=== PATIENT | female | born 1975 | race Caucasian/White ===

== ENCOUNTER 2017-09-24 12:34 | Emergency (ER) | payer BC, MEDICAID, OTHER, SELFPAY ==
[2017-09-24] MEDS ORDERED: HYDROmorphone 1 MG/ML Syringe IVPUSH ONE ×2 (13:28→16:30)
[2017-09-24] MEDS ORDERED: Sodium Chloride 0.9% 1,000 ML IV ONE (13:28)
[2017-09-24] MEDS ORDERED: Sodium Chloride 0.9% 10 ML Syringe FLUSH PRN (13:28)
[2017-09-24 13:29] VITALS: BP 148/97
--- NOTE | 2017-09-24 13:29 | EDM.PDOC ---
ED HPI GENERAL MEDICAL PROBLEM - General Chief Complaint: Abdominal Pain Stated Complaint: LOWER BACK AND ABD PAIN Time Seen by Provider: 09/24/17 13:00 Source of Information: Reports: Patient, Old Records (May, 2016 ER visits for abdominal pain) History Limitations: Reports: No Limitations - History of Present Illness INITIAL COMMENTS - FREE TEXT/NARRATIVE: 42-year-old female presents for evaluation and treatment of abdominal pain. Patient reports abdominal pain started yesterday around 0400. She states that it woke her from sleep. She said she took some Aleve and a hot shower. She was able to fall back asleep woke up at 0830 again due to the pain. She reports associated symptoms of nausea. She is also complaining of back pain. Patient presented to the [facility] today. Labs and a CT of abdomen and pelvis were done. No abnormalities were identified. She was given Tylenol. She is also taking Aleve twice earlier today. She denies any fevers or vomiting. Reports the abdominal pain is located in the bilateral lower abdomen. Last bowel movement was this morning. No constipation. Past surgical history includes a cholecystectomy and a tubal ligation. Patient is in [facility]. Last menstrual cycle was one year ago. Duration: Day(s): (2) Location: Reports: Abdomen (RLQ) Other Treatments DIVISION CHIEF: alleve at 0730 - Related Data Allergies Allergy/AdvReac Type Severity Reaction Status Date / Time tramadol Allergy Headache Verified 09/24/17 12:50 Home Meds: Home Meds atorvaSTATin [Lipitor] 40 mg PO DAILY 06/02/16 [History] Albuterol Sulfate [Proventil Hfa] 2 puff PO ASDIRECTED 08/04/16 [History] Hydrocodone/Acetaminophen [Hydrocodon-Acetaminophen 5-325] 1 each PO Q4H #10 tablet 08/04/16 [Rx] Acetaminophen/oxyCODONE [Percocet 325-5 MG] 1 tab PO Q6H PRN #20 tablet [Rx] Calcium Carb & Citrate/Vit D3 [Calcium + D3 ER Tablet] 1 tab PO DAILY 09/24/17 [ History] Genistein [I-Cool] 30 mg PO DAILY 09/24/17 [History] Omeprazole Magnesium [Prilosec Otc] 0 mg PO DAILY 09/24/17 [History] Ondansetron [Zofran ODT] 4 mg PO Q6H PRN #20 tab.dis 09/24/17 [Rx] Past Medical History Cardiovascular History: Reports: High Cholesterol Other Cardiovascular History: hyperlipidemia Respiratory History: Reports: Asthma Musculoskeletal History: Reports: Back Pain, Chronic - Past Surgical History GI Surgical History: Reports: Cholecystectomy Female Surgical History: Reports: Tubal Ligation Social & Family History - Family History Endocrine/Metabolic: Reports: Diabetes, type II, Hyperthyroidism Oncologic: Reports: Colon, Other (See Below) Other Oncologic Family History: ocular - Tobacco Use Smoking Status *Q: Current Every Day Smoker Years of Tobacco use: 27 Packs/Tins Daily: 0.5 Used Tobacco, but Quit: No Second Hand Smoke Exposure: Yes - Caffeine Use Caffeine Use: Reports: Coffee, Soda Other Caffeine Use: 2-3 CUPS DAILY - Alcohol Use Days Per Week of Alcohol Use: 2 Number of Drinks Per Day: 3 Total Drinks Per Week: 6 - Recreational Drug Use Recreational Drug Use: No - Living Situation & Occupation Living situation: Reports: Occupation: Employed ED ROS GENERAL - Review of Systems Review Of Systems: See Below Constitutional: Denies: Fever GI/Abdominal: Reports: Abdominal Pain (bilateral lower abdomen), Nausea. Denies : Bloody Stool, Constipation, Diarrhea, Vomiting : Reports: No Symptoms. Denies: Discharge ED EXAM, GI/ABD - Physical Exam Exam: See Below Exam Limited By: No Limitations General Appearance: Alert, WD/WN, No Apparent Distress, Moderate Distress, Obese Respiratory/Chest: No Respiratory Distress, Lungs Clear, Normal Breath Sounds Cardiovascular: Normal Peripheral Pulses, Regular Rate, Rhythm, No Murmur GI/Abdominal Exam: Normal Bowel Sounds, Soft, Tender (bilateral lower abdomen). No: Rebound (Female) Exam: Normal External Exam, Normal Speculum Exam, Normal Bimanual Exam Neurological: Alert, Oriented, Normal Cognition Psychiatric: Normal Affect, Normal Mood Course - Vital Signs Last Recorded V/S: Last Vital Signs Temp 36.4 C 09/24/17 12:46 Pulse 94 09/24/17 12:46 Resp 20 09/24/17 12:46 BP 148/97 H 09/24/17 12:46 Pulse Ox 98 09/24/17 12:46 - Orders/Labs/Meds Labs: Laboratory Tests 09/24/17 09/24/17 Range/Units 13:35 13:35 C-Reactive Protein < 0.2 (<1.0) mg/dL Lipase 72 L (73-393) U/L HCG, Qual Negative (NEGATIVE) Meds: Medications Discontinued Medications Generic Name Dose Route Start Last Admin Trade Name Freq PRN Reason Stop Dose Admin Diphenhydramine HCl 25 mg 09/24/17 19:20 09/24/17 19:26 Benadryl IVPUSH 09/24/17 19:21 25 mg ONETIME ONE Administration Hydromorphone HCl 1 mg 09/24/17 13:28 09/24/17 13:41 Dilaudid IVPUSH 09/24/17 13:29 1 mg ONETIME ONE Administration Hydromorphone HCl 1 mg 09/24/17 16:30 09/24/17 17:19 Dilaudid IVPUSH 09/24/17 16:31 1 mg ONETIME ONE Administration Hydromorphone HCl 0.5 mg 09/24/17 19:15 09/24/17 19:27 Dilaudid IVPUSH 09/24/17 19:16 0.5 mg ONETIME ONE Administration Sodium Chloride 1,000 mls @ 999 mls/hr 09/24/17 13:28 09/24/17 13:41 Normal Saline IV 09/24/17 14:28 999 mls/hr ONETIME ONE Administration Metoclopramide HCl 5 mg 09/24/17 19:15 09/24/17 19:26 Reglan IVPUSH 09/24/17 19:16 5 mg ONETIME ONE Administration Ondansetron HCl 4 mg 09/24/17 13:39 09/24/17 13:45 Zofran IVPUSH 09/24/17 13:40 4 mg ONETIME ONE Administration Ondansetron HCl Confirm 09/24/17 18:01 09/24/17 19:30 Zofran Administered 09/24/17 18:02 Not Given Dose 4 mg .ROUTE .STK-MED ONE Ondansetron HCl 4 mg 09/24/17 18:40 09/24/17 17:58 Zofran IVPUSH 09/24/17 18:41 4 mg ONETIME ONE Administration Sodium Chloride 10 ml 09/24/17 13:28 09/24/17 13:45 Saline Flush FLUSH 10 ml ASDIRECTED PRN Administration Keep Vein Open - Radiology Interpretation Free Text/Narrative:: Pelvic ultrasound: Multiple real-time images were obtained transvaginally. Comparison: Previous pelvic ultrasound exam of 06/07/16. Small anterior fibroid seen within the uterine fundus measuring 1.0 cm. This is seen on previous exams. No additional myometrial abnormality is seen. Endometrial thickness is 2.5 mm which is normal. Right and left ovaries are identified and appear within normal limits. No free fluid is seen. Measurements: Uterus: Length 7.7 cm, AP and 3.2 cm, transverse width 3.8 cm Right ovary: 2.4 x 1.1 x 1.5 cm Left ovary: 2.5 x 1.4 x 1.9 cm Impression: 1. Small anterior uterine fibroid. This is felt to be stable from prior exam. 2. No additional abnormality is appreciated on pelvic ultrasound exam. - Re-Assessments/Exams Free Text/Narrative Re-Assessment/Exam: 09/24/17 14:24 CT and labs obtained from [facility]. These include the following: UA : Negative glucose, negative bilirubin, negative ketones, trace blood, negative protein, negative nitrites and negative leukocytes. Specific gravity of 1.015. CBC: White blood cell count 8.2 with 52.3% neutrophils., hemoglobin 13.7, hematocrit 41.1, platelets 301. CMP: Glucose 89, creatinine 0.8, BUN 11, sodium 142, potassium 4.3, chloride 106 , anion gap 13, AST 17, ALT 28, alkaline phosphatase 41, total bilirubin 0.6 CT of the abdomen and pelvis with contrast both IV and oral was utilized. Findings: Cholecystectomy. Left hepatic cyst. Small accessory spleen. Liver, spleen, pancreas, adrenals, kidneys, bowel and bladder are otherwise normal. The appendix is visualized is normal. No lymphadenopathy. No free intra- peritoneal air or fluid. Atelectasis in both lung bases. Degenerative change in the spine. Impression is no acute abnormality. 09/24/17 16:[address] Durand. Recommend a pelvic exam and transvaginal ultrasound to further evaluate. 09/24/17 19:15 Patient reports that the IV Dilaudid has significantly helped with the pain but pain is still present. The pain is now more localized to the left lower quadrant. I reviewed the ultrasound results with the patient. Offered admission for pain control. Reports she does not have insurance. She like to go home and try pain medications and will follow-up with her primary care provider. Instructed to return if symptoms change or worsen. Discharge instructions as documented. Departure - Departure Time of Disposition: 19:15 Disposition: Home, Self-Care 01 Condition: Fair Clinical Impression: Abdominal pain of unknown etiology - Discharge Information Prescriptions: Acetaminophen/oxyCODONE [Percocet 325-5 MG] 1 tab PO Q6H PRN #20 tablet PRN Reason: Pain Ondansetron [Zofran ODT] 4 mg PO Q6H PRN #20 tab.dis PRN Reason: Nausea Instructions: Abdominal Pain, Adult, [id number] Referrals: Linda Cabrera COKE [employer]ER [Primary Care Provider] - Forms: ED Department Discharge Additional Instructions: Percocet 1-2 tabs every 4-6 hours as needed for pain. Percocet can habit forming , I recommend you take as few of these as needed to control your pain. Do not drive or operative machinery within 12 hours of taking Percocet. Zofran 1 tablet every 6 hours as needed for nausea. Clear fluids and bland diet today. may advance as tolerated. Follow-up a primary care provider early next week. Please return to the ER if your symptoms change or worsen. You were given medication in the ER that can affect driving or operating machinery. Do not drive or operate machinery within 12 hours.
[2017-09-24] MEDS ORDERED: Ondansetron 4 MG/2 ML SDV IVPUSH ONE ×2 (13:39→18:40)
[2017-09-24] MEDS ORDERED: Ondansetron 4 MG/2 ML SDV ONE (18:01)
--- NOTE | 2017-09-24 19:03 | US ---
Pelvic ultrasound: Multiple real-time images were obtained transvaginally. Comparison: Previous pelvic ultrasound exam of 06/07/16. Small anterior fibroid seen within the uterine fundus measuring 1.0 cm. This is seen on previous exams. No additional myometrial abnormality is seen. Endometrial thickness is 2.5 mm which is normal. Right and left ovaries are identified and appear within normal limits. No free fluid is seen. Measurements: Uterus: Length 7.7 cm, AP and 3.2 cm, transverse width 3.8 cm Right ovary: 2.4 x 1.1 x 1.5 cm Left ovary: 2.5 x 1.4 x 1.9 cm Impression: 1. Small anterior uterine fibroid. This is felt to be stable from prior exam. 2. No additional abnormality is appreciated on pelvic ultrasound exam. Diagnostic code #2
[2017-09-24] MEDS ORDERED: Metoclopramide 10 MG/2 ML SDV IVPUSH ONE (19:15)
[2017-09-24] MEDS ORDERED: HYDROmorphone 0.5 MG/0.5 ML Syringe IVPUSH ONE (19:15)
[2017-09-24] MEDS ORDERED: diphenhydrAMINE 50 MG/ML SDV IVPUSH ONE (19:20)
== END 2017-09-24 19:40 | disposition home or self-care (01) ==
LOC: JD.ED 12:34
DX: R10.32 Left lower quadrant pain (principal); R10.31 Right lower quadrant pain; J45.909 Unspecified asthma, uncomplicated; E78.5 Hyperlipidemia, unspecified; F17.210 Nicotine dependence, cigarettes, uncomplicated; Z79.899 Other long term (current) drug therapy; Z88.5 Allergy status to narcotic agent
CPT/HCPCS: 36415; 76830; 83690; 84703; 86140; 87210; 87808; 96361; 96374; 96375; 96376; 99285; J1170; J1200; J2405; J2765; J7040; J7050; 99284

== ENCOUNTER 2018-12-25 13:59 | Emergency (ER) | payer OTHER ==
[2018-12-25] MEDS ORDERED: Ketorolac 30 MG/ML SDV IM ONE (14:57)
--- NOTE | 2018-12-25 15:06 | EDM.PDOC ---
ED HPI GENERAL MEDICAL PROBLEM - General Chief Complaint: Abdominal Pain Stated Complaint: SEVERE ABDOMINAL PAIN/SORE THROAT. Time Seen by Provider: 12/25/18 14:01 Source of Information: Reports: Patient, Family History Limitations: Reports: No Limitations - History of Present Illness INITIAL COMMENTS - FREE TEXT/NARRATIVE: 43 yo post-menopausal F presents with LLQ abdominal pain x 2 months. She stated she was seen at [facility] and had testing done on 11/01/18 for her pain- CT abdomen, Vaginal U/S, Stool cultures all negative. She states the pain has only been getting worse. Heating pad, hot shower, Aleve and ibuprofen have not helped the pain. She does have h/o uterine fibroid, L hepatic cyst, diverticulosis, cholecystectomy. She was supposed to have a colonoscopy/ endoscopy this past Wednesday at [facility], but she states they refused to do the procedure as she had a fever at the time. She currently complains of BILLINGS, sore throat, decreased appetite, low grade fever (100.5 at home, but she is 98.9 here ), chills, nausea, loose stool, urinary frequency, decreased sleep 2/2 ab pain. She denies vomiting, constipation, dysuria, cough, runny nose, recent sick contacts, recent change in diet, recent travel, or illicit drug use. She drinks socially, about 3-5 drinks per sitting. Last drink was last night to "get rid of the pain, but it didn't work". 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 Ricketts, she has yet to have appointment with her yet. PCP is Dr. Marsha Murillo. Left Lower Abdomen Pain Score (Numeric/FACES): 10 - Related Data Allergies Allergy/AdvReac Type Severity Reaction Status Date / Time tramadol Allergy Headache Verified 12/25/18 14:15 Home Meds: Home Meds atorvaSTATin [Lipitor] 40 mg PO DAILY 06/02/16 [History] Albuterol Sulfate [Proventil Hfa] 2 puff PO ASDIRECTED 08/04/16 [History] Hydrocodone/Acetaminophen [Hydrocodon-Acetaminophen 5-325] 1 each PO Q4H #10 tablet 08/04/16 [Rx] Acetaminophen/oxyCODONE [Percocet 325-5 MG] 1 tab PO Q6H PRN #20 tablet [Rx] Calcium Carb & Citrate/Vit D3 [Calcium + D3 ER Tablet] 1 tab PO DAILY 09/24/17 [ History] Genistein [I-Cool] 30 mg PO DAILY 09/24/17 [History] Omeprazole Magnesium [Prilosec Otc] 0 mg PO DAILY 09/24/17 [History] Ondansetron [Zofran ODT] 4 mg PO Q6H PRN #20 tab.dis 09/24/17 [Rx] Past Medical History HEENT History: Reports: Impaired Vision Other HEENT History: Wears glasses Cardiovascular History: Reports: High Cholesterol Other Cardiovascular History: hyperlipidemia Respiratory History: Reports: Asthma Musculoskeletal History: Reports: Back Pain, Chronic - Past Surgical History GI Surgical History: Reports: Cholecystectomy Female Surgical History: Reports: Tubal Ligation Social & Family History - Family History Endocrine/Metabolic: Reports: Diabetes, type II, Hyperthyroidism Oncologic: Reports: Colon, Other (See Below) Other Oncologic Family History: ocular - Tobacco Use Smoking Status *Q: Current Every Day Smoker Years of Tobacco use: 17 Packs/Tins Daily: 0.2 - Caffeine Use Caffeine Use: Reports: Coffee Other Caffeine Use: 2-3 CUPS DAILY - Recreational Drug Use Recreational Drug Use: No - Living Situation & Occupation Living situation: Reports: Occupation: Employed ED ROS GENERAL - Review of Systems Review Of Systems: ROS reveals no pertinent complaints other than HPI. ED EXAM, GI/ABD - Physical Exam Exam: See Below Exam Limited By: No Limitations General Appearance: Alert Eyes: Bilateral: Normal Appearance, EOMI Ears: Normal External Exam, Normal Canal, Hearing Grossly Normal Nose: Normal Inspection, Normal Mucosa, No Blood Throat/Mouth: Normal Inspection, Normal Oropharynx, Normal Voice, No Airway Compromise, Other (dry mucosa/tongue). No: Normal Lips (dry and cracked) Head: Atraumatic, Normocephalic Neck: Normal Inspection, Supple, Non-Tender, Full Range of Motion Respiratory/Chest: No Respiratory Distress, Lungs Clear, Normal Breath Sounds, No Accessory Muscle Use, Chest Non-Tender Cardiovascular: Normal Peripheral Pulses, No Edema, No Gallop, No JVD, No Murmur , No Rub, Tachycardia GI/Abdominal Exam: Soft, No Organomegaly, No Distention, No Abnormal Bruit, No Mass, Pelvis Stable, Tender (LLQ), Abnormal Bowel Sounds (hyperactive). No: Rebound (Female) Exam: Deferred Extremities: Normal Inspection, Normal Range of Motion, Non-Tender, Normal Capillary Refill, No Pedal Edema Psychiatric: Normal Affect, Normal Mood Skin Exam: Warm, Dry, Intact, Normal Color, No Rash Course - Vital Signs Last Recorded V/S: Last Vital Signs Temp 98.9 F 12/25/18 14:15 Pulse 84 12/25/18 17:05 Resp 16 12/25/18 17:05 BP 134/80 12/25/18 17:05 Pulse Ox 98 12/25/18 17:05 - Orders/Labs/Meds Labs: Laboratory Tests 12/25/18 12/25/18 12/25/18 Range/Units 15:10 15:10 15:42 WBC 9.02 (3.98-10.04) K/mm3 RBC 4.59 (3.98-5.22) M/mm3 Hgb 13.6 (11.2-15.7) gm/L Hct 41.5 (34.1-44.9) % MCV 90.4 (79.4-94.8) fl MCH 29.6 (25.6-32.2) pg MCHC 32.8 (32.2-35.5) g/dl RDW Std Deviation 44.1 (36.4-46.3) fL Plt Count 310 (182-369) K/mm3 MPV 9.6 (9.4-12.3) fl Neut % (Auto) 52.8 (34.0-71.1) % Lymph % (Auto) 34.7 (19.3-51.7) % [place] % (Auto) 8.3 (4.7-12.5) % Eos % (Auto) 3.4 (0.7-5.8) Baso % (Auto) 0.6 (0.1-1.2) % Neut # (Auto) 4.76 (1.56-6.13) K/mm3 Lymph # (Auto) 3.13 (1.18-3.74) K/mm3 [place] # (Auto) 0.75 H (0.24-0.36) K/mm3 Eos # (Auto) 0.31 (0.04-0.36) K/mm3 Baso # (Auto) 0.05 (0.01-0.08) K/mm3 Sodium 140 (136-145) mEq/L Potassium 4.0 (3.5-5.1) mEq/L Chloride 104 (98-107) mEq/L Carbon Dioxide 27 (21-32) mEq/L Anion Gap 13.0 (5-15) BUN 8 (7-18) mg/dL Creatinine 0.9 (0.55-1.02) mg/dL Est Cr Clr Drug Dosing 66.73 mL/min Estimated GFR (MDRD) > 60 (>60) mL/min BUN/Creatinine Ratio 8.9 L (14-18) Glucose 90 (74-106) mg/dL Calcium 9.5 (8.5-10.1) mg/dL Total Bilirubin 0.3 (0.2-1.0) mg/dL AST 28 (15-37) U/L ALT 51 (14-59) U/L Alkaline Phosphatase 39 L (46-116) U/L C-Reactive Protein 0.2 (<1.0) mg/dL Total Protein 7.3 (6.4-8.2) g/dl Albumin 3.7 (3.4-5.0) g/dl Globulin 3.6 gm/dL Albumin/Globulin Ratio 1.0 (1-2) Urine Color Yellow (Yellow) Urine Appearance Clear (Clear) Urine pH 7.0 (5.0-8.0) Ur Specific [place] 1.025 (1.005-1.030) Urine Protein Negative (Negative) Urine Glucose (UA) Negative (Negative) Urine Ketones Negative (Negative) Urine Occult Blood 1+ H (Negative) Urine Nitrite Negative (Negative) Urine Bilirubin Negative (Negative) Urine Urobilinogen 0.2 (0.2-1.0) Ur Leukocyte Esterase Negative (Negative) Urine RBC 0-5 (0-5) /hpf Urine WBC Not seen (0-5) /hpf Ur Epithelial Cells 5-10 H (0-5) /hpf Urine Bacteria Not seen (FEW) /hpf Urine Mucus Not seen (FEW) /hpf Meds: Medications Discontinued Medications Generic Name Dose Route Start Last Admin Trade Name Freq PRN Reason Stop Dose Admin Hydromorphone HCl 0.5 mg 12/25/18 16:28 12/25/18 16:33 Dilaudid IM 12/25/18 16:29 Not Given ONETIME ONE Hydromorphone HCl 0.5 mg 12/25/18 16:32 12/25/18 16:37 Dilaudid IM 12/25/18 16:33 0.5 mg ONETIME STA Administration Hydromorphone HCl Confirm 12/25/18 16:31 12/25/18 16:36 Dilaudid Administered 12/25/18 16:32 Not Given Dose 1 mg .ROUTE .STK-MED ONE Ketorolac Tromethamine 30 mg 12/25/18 14:57 12/25/18 15:11 Toradol IM 12/25/18 14:58 30 mg ONETIME ONE Administration - Re-Assessments/Exams Free Text/Narrative Re-Assessment/Exam: 12/25/18 15:06 I have ordered CBC, CMP, CRP, KUB, Strep, Influenza, UA Also ordered Toradol for the pain 12/25/18 15:55 Influenza and Strep negative CBC, CMP, CRP WNL KUB and UA pending 12/25/18 16:19 UA negative for UTI KUB reviewed by Dr. Bailey and myself. No acute findings at this time. Some constipation. Departure - Departure Time of Disposition: 16:29 Disposition: Home, Self-Care 01 Condition: Fair Clinical Impression: Constipation Abdominal pain Qualifiers: Abdominal location: right lower quadrant Qualified Code(s): R10.31 - Right lower quadrant pain - Discharge Information *PRESCRIPTION DRUG MONITORING PROGRAM REVIEWED*: Not Applicable *COPY OF PRESCRIPTION DRUG MONITORING REPORT IN PATIENT TREY: Not Applicable Instructions: Constipation, Adult, [id number], Abdominal Pain, Adult, Easy-to -Read Referrals: Marsha Murillo MD [Primary Care Provider] - Forms: ED Department Discharge Additional Instructions: You were seen in the ED today for Left lower abdominal pain and sore throat. Your workup here was benign. No sign of infection in your blood work, urine analysis was negative for UTI, strep and influenza were negative, abdominal xray shows some constipation only. At this point, it seems that constipation is the only issue we could find here. Recommend [id number] Miralax daily ( can take up to 3 days to work). Also recommend follow up with primary care doctor and colonoscopy/endoscopy [facility] for further workup of your GI issues. Please return to ED if new or worsening symptoms.
[2018-12-25] MEDS ORDERED: HYDROmorphone 0.5 MG/0.5 ML Syringe IM ONE (16:28)
[2018-12-25] MEDS ORDERED: HYDROmorphone 1 MG/ML Syringe ONE (16:31)
[2018-12-25] MEDS ORDERED: HYDROmorphone 1 MG/ML Syringe IM STA (16:32)
[2018-12-25 17:05] VITALS: BP 134/80
--- NOTE | 2018-12-25 17:13 | CR ---
Abdomen: Supine view of the abdomen was obtained. Comparison: No prior abdominal plain film study. Calcifications are seen within the pelvis which are compatible with phleboliths. Surgical clips are seen from prior cholecystectomy. Bowel gas pattern is normal. Bony structures appear within normal limits. Impression: 1. Incidental findings. Nothing acute is appreciated on supine abdominal x-ray. Diagnostic code #2
== END 2018-12-25 17:04 | disposition home or self-care (01) ==
LOC: JD.ED 13:59
DX: K59.00 Constipation, unspecified (principal); F17.210 Nicotine dependence, cigarettes, uncomplicated; E78.00 Pure hypercholesterolemia, unspecified; E78.5 Hyperlipidemia, unspecified; J45.909 Unspecified asthma, uncomplicated; Z79.899 Other long term (current) drug therapy; Z88.5 Allergy status to narcotic agent
CPT/HCPCS: 36415; 74018; 80053; 81001; 85025; 86140; 87081; 87430; 87804; 96372; 99284; J1170; J1885; 99283

== ENCOUNTER 2021-05-30 11:34 | Emergency (ER) | payer MEDICAID, OTHER ==
[2021-05-30 12:07] VITALS: BP 164/107; PULSE 105
[2021-05-30] MEDS ORDERED: Acetaminophen/Codeine 300-30 MG Tab PO ONE (12:43)
[2021-05-30] MEDS ORDERED: Clindamycin HCl 150 MG Cap PO ONE (12:45)
--- NOTE | 2021-05-30 12:52 | EDM.PDOC ---
ED HPI GENERAL MEDICAL PROBLEM - General Chief Complaint: ENT Problem Stated Complaint: DENTAL COMPLAINT Time Seen by Provider: 05/30/21 12:02 Source of Information: Reports: Patient, RN Notes Reviewed History Limitations: Reports: No Limitations - History of Present Illness INITIAL COMMENTS - FREE TEXT/NARRATIVE: Patient is a 45-year-old female presenting to the emergency part with complaints of pain and swelling to her left upper, frontal mouth. Reports that she has bad teeth and is scheduled to begin the process of having dentures placed in July. 3 days ago, she developed pain and swelling to the gums in this area. States that she feels like her left nostril is also congested. Denies any fever or chills. She is had no nausea or vomiting. She has taken her gabapentin and meloxicam as prescribed with little relief. Upper Frontal Tooth/Teeth Pain Score (Numeric/FACES): 8 - Related Data Allergies Allergy/AdvReac Type Severity Reaction Status Date / Time tramadol Allergy Severe Headache Verified 05/30/21 12:07 Home Meds: Home Meds atorvaSTATin [Lipitor] 40 mg PO DAILY 06/02/16 [History] Albuterol Sulfate [Proventil Hfa] 2 puff PO ASDIRECTED 08/04/16 [History] Calcium Carb, Citrate/Vit D3 [Calcium + D3 ER Tablet] 1 tab PO DAILY 09/24/17 [History] Omeprazole Magnesium [Prilosec Otc] 0 mg PO DAILY 09/24/17 [History] Ondansetron [Zofran ODT] 4 mg PO Q6H PRN #20 tab.dis 09/24/17 [Rx] Black Cohosh 40 mg PO BID 05/31/19 [History] Diclofenac Sodium 100 gm TP QID 05/31/19 [History] Gabapentin [Neurontin] 300 mg PO BID 05/31/19 [History] oxyCODONE HCl/Acetaminophen [Oxycodone-Acetaminophen 5-325] 1 each PO Q6H PRN #12 tablet 05/31/19 [Rx] predniSONE [Deltasone] 20 mg PO ASDIRECTED #15 tablet 05/31/19 [Rx] Acetaminophen/Codeine [Tylenol with Codeine No.3 300MG/30MG] 1 - 2 tab PO Q6H PRN #16 tab 05/30/21 [Rx] Clindamycin HCl 300 mg PO QID 7 Days #27 capsule 05/30/21 [Rx] Past Medical History HEENT History: Reports: Impaired Vision Other HEENT History: Wears glasses Cardiovascular History: Reports: High Cholesterol Other Cardiovascular History: hyperlipidemia Respiratory History: Reports: Asthma 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 History: Reports: None 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: Musculoskeletal History: Reports: Back Pain, Chronic Neurological History: Reports: None Psychiatric History: Reports: None Endocrine/Metabolic History: Reports: Obesity/BMI 30+ Hematologic History: Reports: None Immunologic History: Reports: None Oncologic (Cancer) History: Reports: Colon Other Oncologic History: suspected Dermatologic History: Reports: None - Infectious Disease History Infectious Disease History: Reports: None - Past Surgical History Head Surgeries/Procedures: Reports: None HEENT Surgical History: Reports: Other (See Below) Other HEENT Surgeries/Procedures: dental issues GI Surgical History: Reports: Cholecystectomy Other GI Surgeries/Procedures: Pt was told she most likely has bowel cancer and states pain is the worst it has ever been states a constant sharp stabbing pain that increases with movement. Female Surgical History: Reports: Tubal Ligation Social & Family History - Family History Family Medical History: No Pertinent Family History Endocrine/Metabolic: Reports: Diabetes, type II, Hyperthyroidism Oncologic: Reports: Colon, Other (See Below) Other Oncologic Family History: ocular - Tobacco Use Tobacco Use Status *Q: Current Every Day Tobacco User Years of Tobacco use: 20 Packs/Tins Daily: 0.5 - Caffeine Use Caffeine Use: Reports: Coffee Other Caffeine Use: 2-3 CUPS DAILY - Recreational Drug Use Recreational Drug Use: No - Living Situation & Occupation Living situation: Reports: Occupation: Employed ED ROS ENT - Review of Systems Review Of Systems: Comprehensive ROS is negative, except as noted in HPI. ED EXAM, ENT - Physical Exam Exam: See Below Exam Limited By: No Limitations General Appearance: Alert, WD/WN, No Apparent Distress Mouth/Throat: Normal Oropharynx, Other (Swelling and erythema of the gums overlying the area of tooth 9 through 11. Tooth 9 and 11 are absent. Tooth 10 is broken off at the gumline. No visible abscess.) Respiratory/Chest: No Respiratory Distress, Lungs Clear, Normal Breath Sounds, No Accessory Muscle Use, Chest Non-Tender Cardiovascular: Normal Peripheral Pulses, Regular Rate, Rhythm, No Edema, No Gallop, No JVD, No Murmur, No Rub Neurological: Alert, Oriented, CN II-XII Intact, Normal Cognition, Normal Gait, Normal Reflexes, No Motor/Sensory Deficits Psychiatric: Normal Affect, Normal Mood Skin: Warm, Dry, Intact, Normal Color, No Rash Course - Vital Signs Last Recorded V/S: Last Vital Signs Temp 98.3 F 05/30/21 12:05 Pulse 105 H 05/30/21 12:05 Resp 20 05/30/21 12:05 BP 164/107 H 05/30/21 12:05 Pulse Ox 96 05/30/21 12:05 - Orders/Labs/Meds Meds: Medications Discontinued Medications Generic Name Dose Route Start Last Admin Trade Name Freq PRN Reason Stop Dose Admin Acetaminophen/Codeine Phosphate 2 tab 05/30/21 12:43 05/30/21 13:05 Acetaminophen/Codeine 300-30 Mg Tab PO 05/30/21 12:44 2 tab ONETIME ONE Administration Clindamycin HCl 300 mg 05/30/21 12:45 05/30/21 13:05 Clindamycin Hcl 150 Mg Cap PO 05/30/21 12:46 300 mg ONETIME ONE Administration - Re-Assessments/Exams Free Text/Narrative Re-Assessment/Exam: 05/30/21 12:52 Patient is a 45-year-old female presenting to the emergency department with complaints of pain and swelling to the gums in her left anterior upper mouth. On exam, the gums overlying the area of tooth 9 through 11 are red and erythematous. There is no visible abscess. Tooth 9 and 11 are absent. Tooth 10 is broke off at the gumline. Patient will be started on clindamycin for treatment of abdominal infection. I will also write for Tylenol No. 3. Trey mmend updating her dentist and following up if symptoms do not improve in the next 2 to 3 days. discharge instructions as documented. Departure - Departure Time of Disposition: 12:52 Disposition: Home, Self-Care 01 Condition: Good Clinical Impression: Dental infection - Discharge Information *PRESCRIPTION DRUG MONITORING PROGRAM REVIEWED*: Yes *COPY OF PRESCRIPTION DRUG MONITORING REPORT IN PATIENT TREY: No Prescriptions: Clindamycin HCl 300 mg PO QID 7 Days #27 capsule Acetaminophen/Codeine [Tylenol with Codeine No.3 300MG/30MG] 1 - 2 tab PO Q6H PRN #16 tab PRN Reason: Pain Instructions: Dental Abscess, [id number] Referrals: Cathy Saavedra MD [Primary Care Provider] - Forms: ED Department Discharge Additional Instructions: You were seen in the emergency department today for pain and swelling to your left upper mouth. You been started on clindamycin for treatment of dental infection. Take this as prescribed. You have also been given Tylenol 3's for pain. Uses only as prescribed. Not work or drive for 12 hours after taking th em as that can be sedating. First dose of both of these medications were given in ER. Symptoms should improve over the next few days. If they should fail to improve or worsen, you should be reevaluated. I would recommend updating your dentist of this infection. Return to ER as needed. Sepsis Event Note (ED) - Evaluation Sepsis Screening Result: No Definite Risk - Focused Exam Vital Signs: Vital Signs Temp Pulse Resp BP Pulse Ox 05/30/21 12:05 98.3 F 105 H 20 164/107 H 96
== END 2021-05-30 13:07 | disposition home or self-care (01) ==
LOC: JD.ED 11:34
DX: K04.7 Periapical abscess without sinus (principal); E78.00 Pure hypercholesterolemia, unspecified; I10 Essential (primary) hypertension; E66.9 Obesity, unspecified; Z68.36 Body mass index [BMI] 36.0-36.9, adult; Z88.5 Allergy status to narcotic agent; Z79.899 Other long term (current) drug therapy; Z72.0 Tobacco use
CPT/HCPCS: 99283; A9270

== ENCOUNTER 2021-07-17 07:56 | Emergency (ER) | payer MEDICAID ==
[2021-07-17 08:12] VITALS: BP 180/103; PULSE 115
[2021-07-17] MEDS ORDERED: Metoclopramide 10 MG/2 ML SDV IVPUSH ONE (08:30)
[2021-07-17] MEDS ORDERED: Sodium Chloride 0.9% 10 ML Syringe FLUSH PRN (08:30)
[2021-07-17] MEDS ORDERED: diphenhydrAMINE 50 MG/ML SDV IVPUSH ONE (08:30)
[2021-07-17] MEDS ORDERED: Ketorolac 30 MG/ML SDV IVPUSH ONE (08:30)
--- NOTE | 2021-07-17 08:48 | EDM.PDOC ---
ED HPI GENERAL MEDICAL PROBLEM - General Chief Complaint: Headache Stated Complaint: SHARP PAIN IN THE BACK OF HEAD X 3 DAYS Time Seen by Provider: 07/17/21 08:03 Source of Information: Reports: Patient History Limitations: Reports: No Limitations - History of Present Illness INITIAL COMMENTS - FREE TEXT/NARRATIVE: The patient presents with a headache. This started a couple days ago. The pain is worse today. The pain is in the back of her head on the left side. She has a history of headaches but not this severe. She has nausea but no vomiting. She has no numbness or weakness. She has no fever, chills, cough, chest pain, or shortness of breath. Onset: Gradual Duration: Day(s): Location: Reports: Head Quality: Reports: Sharp Severity: Severe Improves with: Reports: None Worsens with: Reports: None Associated Symptoms: Reports: Headaches, Nausea/Vomiting. Denies: Chest Pain, Cough, Fever/Chills, Shortness of Breath Headache Pain Score (Numeric/FACES): 10 - Related Data Allergies Allergy/AdvReac Type Severity Reaction Status Date / Time tramadol Allergy Severe Headache Verified 07/17/21 08:11 Home Meds: Home Meds atorvaSTATin [Lipitor] 40 mg PO DAILY 06/02/16 [History] Albuterol Sulfate [Proventil Hfa] 2 puff PO ASDIRECTED 08/04/16 [History] Calcium Carb, Citrate/Vit D3 [Calcium + D3 ER Tablet] 1 tab PO DAILY 09/24/17 [History] Omeprazole Magnesium [Prilosec Otc] 0 mg PO DAILY 09/24/17 [History] Ondansetron [Zofran ODT] 4 mg PO Q6H PRN #20 tab.dis 09/24/17 [Rx] Black Cohosh 40 mg PO BID 05/31/19 [History] Diclofenac Sodium 100 gm TP QID 05/31/19 [History] Gabapentin [Neurontin] 300 mg PO BID 05/31/19 [History] oxyCODONE HCl/Acetaminophen [Oxycodone-Acetaminophen 5-325] 1 each PO Q6H PRN #12 tablet 05/31/19 [Rx] predniSONE [Deltasone] 20 mg PO ASDIRECTED #15 tablet 05/31/19 [Rx] Acetaminophen/Codeine [Tylenol with Codeine No.3 300MG/30MG] 1 - 2 tab PO Q6H PRN #16 tab 05/30/21 [Rx] Clindamycin HCl 300 mg PO QID 7 Days #27 capsule 05/30/21 [Rx] Hydrocodone/Acetaminophen [Hydrocodone-Acetamin 5-325 mg] 1 - 2 each PO Q6H PRN #30 tablet 07/17/21 [Rx] Penicillin V Potassium 500 mg PO Q6HR #40 tab 07/17/21 [Rx] Past Medical History HEENT History: Reports: Impaired Vision Other HEENT History: Wears glasses Cardiovascular History: Reports: High Cholesterol Other Cardiovascular History: hyperlipidemia Respiratory History: Reports: Asthma 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 History: Reports: 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: Musculoskeletal History: Reports: Back Pain, Chronic Neurological History: Reports: None Psychiatric History: Reports: None Endocrine/Metabolic History: Reports: Obesity/BMI 30+ Hematologic History: Reports: None Immunologic History: Reports: None Oncologic (Cancer) History: Reports: Colon Other Oncologic History: suspected Dermatologic History: Reports: None - Infectious Disease History Infectious Disease History: Reports: None - Past Surgical History Head Surgeries/Procedures: Reports: None HEENT Surgical History: Reports: Other (See Below) Other HEENT Surgeries/Procedures: dental issues GI Surgical History: Reports: Cholecystectomy Other GI Surgeries/Procedures: Pt was told she most likely has bowel cancer and states pain is the worst it has ever been states a constant sharp stabbing pain that increases with movement. Female Surgical History: Reports: Tubal Ligation Social & Family History - Family History Family Medical History: No Pertinent Family History Endocrine/Metabolic: Reports: Diabetes, type II, Hyperthyroidism Oncologic: Reports: Colon, Other (See Below) Other Oncologic Family History: ocular - Tobacco Use Tobacco Use Status *Q: Current Every Day Tobacco User Years of Tobacco use: 20 Packs/Tins Daily: 1 - Caffeine Use Caffeine Use: Reports: Coffee Other Caffeine Use: 2-3 CUPS DAILY - Living Situation & Occupation Living situation: Reports: Occupation: Employed ED ROS GENERAL - Review of Systems Review Of Systems: See Below Constitutional: Reports: No Symptoms HEENT: Reports: No Symptoms Respiratory: Reports: No Symptoms Cardiovascular: Reports: No Symptoms Endocrine: Reports: No Symptoms GI/Abdominal: Reports: Nausea. Denies: Abdominal Pain, Vomiting : Reports: No Symptoms Musculoskeletal: Reports: No Symptoms Neurological: Reports: Headache - Physical Exam Exam: See Below Exam Limited By: No Limitations General Appearance: Alert, No Apparent Distress Ears: Normal External Exam Nose: Normal Inspection Head Exam: Atraumatic, Normocephalic Neck: Normal Inspection, Supple, Non-Tender Respiratory/Chest: No Respiratory Distress, Lungs Clear, Normal Breath Sounds Cardiovascular: Regular Rate, Rhythm, No Edema, No Murmur GI/Abdominal: Soft, Non-Tender, No Organomegaly, No Mass Neuro Exam (Abbreviated): Alert, Oriented, No Motor/Sensory Deficits Course - Vital Signs Last Recorded V/S: Last Vital Signs Temp 97.6 F 07/17/21 08:06 Pulse 115 H 07/17/21 08:06 Resp 18 07/17/21 08:06 BP 180/103 H 07/17/21 08:06 Pulse Ox 97 07/17/21 08:06 - Orders/Labs/Meds Orders: Active Orders 24 hr Category Date Time Status Peripheral IV Care [RC] . DIRECTED Care 07/17/21 08:30 Active Sodium Chloride 0.9% [Saline Flush] Med 07/17/21 08:30 Active 10 ml FLUSH ASDIRECTED PRN Peripheral IV Insertion Adult [OM.PC] Routine Oth 07/17/21 08:30 Ordered Medication Orders Sodium Chloride (Sodium Chloride 0.9% 10 Ml Syringe) 10 ml FLUSH ASDIRECTED PRN PRN Reason: Keep Vein Open Last Admin: 07/17/21 08:39 Dose: 10 ml Documented by: DON Meds: Medications Generic Name Dose Route Start Last Admin Trade Name Freq PRN Reason Stop Dose Admin Sodium Chloride 10 ml 07/17/21 08:30 07/17/21 08:39 Sodium Chloride 0.9% 10 Ml Syringe FLUSH 10 ml ASDIRECTED PRN Administration Keep Vein Open Discontinued Medications Generic Name Dose Route Start Last Admin Trade Name Freq PRN Reason Stop Dose Admin Diphenhydramine HCl 50 mg 07/17/21 08:30 07/17/21 08:39 Diphenhydramine 50 Mg/Ml Sdv IVPUSH 07/17/21 08:31 50 mg ONETIME ONE Administration Hydromorphone HCl 1 mg 07/17/21 09:19 07/17/21 09:36 Hydromorphone 1 Mg/Ml Syringe IVPUSH 07/17/21 09:20 1 mg ONETIME ONE Administration Hydromorphone HCl 1 mg 07/17/21 10:22 07/17/21 10:29 Hydromorphone 1 Mg/Ml Syringe IVPUSH 07/17/21 10:23 1 mg ONETIME ONE Administration Ketorolac Tromethamine 30 mg 07/17/21 08:30 07/17/21 08:39 Ketorolac 30 Mg/Ml Sdv IVPUSH 07/17/21 08:31 30 mg ONETIME ONE Administration Metoclopramide HCl 10 mg 07/17/21 08:30 07/17/21 08:39 Metoclopramide 10 Mg/2 Ml Sdv IVPUSH 07/17/21 08:31 10 mg ONETIME ONE Administration - Re-Assessments/Exams Free Text/Narrative Re-Assessment/Exam: 07/17/21 09:08 I ordered an IV saline lock, toradol 30mg IV, benadryl 50mg IV, reglan 10mg IV and a CT of her head. 07/17/21 09:[address] of her head looks good. She still has a bad headache. I ordered dilaudid 1mg IV. She has very bad teeth. Her is wondering if the pain in her teeth is causing the pain. I looked and she has multiple missing teeth, multiple broken teeth and erythema and edema to the left lower jaw. I feels she has a dental abscess and needs antibiotics and something for pain. She does start the process to get her teeth removed and dentures put in on August 04. This pain could be related. I will observe her a short time longer and see how her pain is. 07/17/21 10:52 She is having more pain so I ordered another dose of dilaudid 1mg IV. I will discharge her home with some antibiotics and something for pain. Departure - Departure Time of Disposition: 10:55 Disposition: Home, Self-Care 01 Condition: Good Clinical Impression: Dental infection Headache Qualifiers: Headache type: other headache syndrome Qualified Code(s): G44.89 - Other headache syndrome - Discharge Information *PRESCRIPTION DRUG MONITORING PROGRAM REVIEWED*: No *COPY OF PRESCRIPTION DRUG MONITORING REPORT IN PATIENT TREY: No Prescriptions: Hydrocodone/Acetaminophen [Hydrocodone-Acetamin 5-325 mg] 1 - 2 each PO Q6H PRN #30 tablet PRN Reason: Pain Penicillin V Potassium 500 mg PO Q6HR #40 tab Referrals: Cathy Saavedra MD [Primary Care Provider] - 1 Week Forms: ED Department Discharge Additional Instructions: Take the penicillin 4 times per day until gone. Take tylenol or motrin as needed for pain. If that does not work, try they hydrocodone. Follow up with your dentist as scheduled. Please return if you are worse. Sepsis Event Note (ED) - Evaluation Sepsis Screening Result: No Definite Risk - Focused Exam Vital Signs: Vital Signs Temp Pulse Resp BP Pulse Ox 07/17/21 08:06 97.6 F 115 H 18 180/103 H 97 - My Orders Last 24 Hours: My Active Orders 07/17/21 08:30 Peripheral IV Care [RC] . DIRECTED Sodium Chloride 0.9% [Saline Flush] 10 ml FLUSH ASDIRECTED PRN Peripheral IV Insertion Adult [OM.PC] Routine - Assessment/Plan Last 24 Hours: My Active Orders 07/17/21 08:30 Peripheral IV Care [RC] . DIRECTED Sodium Chloride 0.9% [Saline Flush] 10 ml FLUSH ASDIRECTED PRN Peripheral IV Insertion Adult [OM.PC] Routine
--- NOTE | 2021-07-17 09:10 | CT ---
Head CT Technique: Multiple axial sections through the brain were obtained. Intravenous contrast was not utilized. Reconstructed coronal and sagittal images were also obtained. Comparison: No prior intracranial imaging is available. Findings: Ventricles along with basal cisterns and sulci over the convexities are within normal limits for the patient's age. No abnormal parenchymal densities are seen. No evidence of intracranial hemorrhage is seen. No midline shift or mass-effect is seen. Bone window settings were reviewed. Visualized mastoid sinuses and paranasal sinuses show nothing acute. No acute calvarial abnormality is appreciated. Impression: 1. Nothing acute is appreciated on noncontrast head CT study. Diagnostic code #1
[2021-07-17] MEDS ORDERED: HYDROmorphone 1 MG/ML Syringe IVPUSH ONE ×2 (09:19→10:22)
== END 2021-07-17 11:15 | disposition home or self-care (01) ==
LOC: JD.ED 07:56
DX: K04.7 Periapical abscess without sinus (principal); G44.89 Other headache syndrome; E78.00 Pure hypercholesterolemia, unspecified; E66.9 Obesity, unspecified; J45.909 Unspecified asthma, uncomplicated; Z68.30 Body mass index [BMI] 30.0-30.9, adult; Z88.5 Allergy status to narcotic agent; Z72.0 Tobacco use
CPT/HCPCS: 70450; 96374; 96375; 96376; 99284; J1170; J1200; J1885; J2765

== ENCOUNTER 2021-09-19 09:59 | Emergency (ER) | payer MEDICAID ==
[2021-09-19 10:19] VITALS: BP 152/114; PULSE 104
--- NOTE | 2021-09-19 10:43 | EDM.PDOC ---
ED HPI GENERAL MEDICAL PROBLEM - General Chief Complaint: General Stated Complaint: TEETH REMOVAL PAIN Time Seen by Provider: 09/19/21 10:14 Source of Information: Reports: Patient History Limitations: Reports: No Limitations - History of Present Illness INITIAL COMMENTS - FREE TEXT/NARRATIVE: The patient presents with dental pain. She had multiple teeth removed 3 days ago. She has pain and swelling now. She has no fever or chills. She has no cough, congestion or runny nose. She was given hydrocodone but it did not last long. 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 Medication(s) Other Treatments ELECTROCHEMIST: 5 mg Hydrocodone at 0500 today Lower Tooth/Teeth Pain Score (Numeric/FACES): 8 - Related Data Allergies Allergy/AdvReac Type Severity Reaction Status Date / Time tramadol Allergy Severe Headache Verified 07/17/21 08:11 Home Meds: Home Meds atorvaSTATin [Lipitor] 20 mg PO DAILY 06/02/16 [History] Omeprazole Magnesium [Prilosec Otc] 0 mg PO DAILY 09/24/17 [History] Gabapentin [Neurontin] 300 mg PO BID 05/31/19 [History] Hydrocodone/Acetaminophen [Hydrocodone-Acetamin 5-325 mg] 1 - 2 each PO Q6H PRN #30 tablet 07/17/21 [Rx] Hydrocodone/Acetaminophen [Hydrocodone-Acetamin 5-325 mg] 1 - 2 each PO Q6H PRN #30 tablet 09/19/21 [Rx] Penicillin V Potassium 500 mg PO Q6HR #40 tab 09/19/21 [Rx] Past Medical History HEENT History: Reports: Impaired Vision Other HEENT History: Wears glasses Cardiovascular History: Reports: High Cholesterol Other Cardiovascular History: hyperlipidemia Respiratory History: Reports: Asthma 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 History: Reports: 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: Musculoskeletal History: Reports: Back Pain, Chronic Neurological History: Reports: None Psychiatric History: Reports: None Endocrine/Metabolic History: Reports: Obesity/BMI 30+ Hematologic History: Reports: None Immunologic History: Reports: None Oncologic (Cancer) History: Reports: Colon Other Oncologic History: suspected Dermatologic History: Reports: None - Infectious Disease History Infectious Disease History: Reports: None - Past Surgical History Head Surgeries/Procedures: Reports: None HEENT Surgical History: Reports: Other (See Below) Other HEENT Surgeries/Procedures: dental issues GI Surgical History: Reports: Cholecystectomy Other GI Surgeries/Procedures: Pt was told she most likely has bowel cancer and states pain is the worst it has ever been states a constant sharp stabbing pain that increases with movement. Female Surgical History: Reports: Tubal Ligation Social & Family History - Family History Family Medical History: No Pertinent Family History Endocrine/Metabolic: Reports: Diabetes, type II, Hyperthyroidism Oncologic: Reports: Colon, Other (See Below) Other Oncologic Family History: ocular - Tobacco Use Tobacco Use Status *Q: Current Every Day Tobacco User Years of Tobacco use: 30 Packs/Tins Daily: 0.5 - Caffeine Use Caffeine Use: Reports: None Other Caffeine Use: 2-3 CUPS DAILY - Recreational Drug Use Recreational Drug Use: No - Living Situation & Occupation Living situation: Reports: Occupation: Employed ED ROS GENERAL - Review of Systems Review Of Systems: See Below Constitutional: Reports: No Symptoms HEENT: Reports: Dental Pain Respiratory: Reports: No Symptoms Cardiovascular: Reports: No Symptoms Endocrine: Reports: No Symptoms GI/Abdominal: Reports: No Symptoms : Reports: No Symptoms Musculoskeletal: Reports: No Symptoms Skin: Reports: No Symptoms Neurological: Reports: No Symptoms ED EXAM, GENERAL - Physical Exam Exam: See Below Exam Limited By: No Limitations General Appearance: Alert, No Apparent Distress Ears: Normal External Exam Nose: Normal Inspection Throat/Mouth: Other (Erythema and edema to the upper and lower gums.) Head: Atraumatic, Normocephalic Neck: Normal Inspection, Supple, Non-Tender Respiratory/Chest: No Respiratory Distress, Lungs Clear, Normal Breath Sounds Cardiovascular: Regular Rate, Rhythm, No Edema, No Rub GI/Abdominal: Soft, Non-Tender, No Organomegaly Back Exam: Normal Inspection Extremities: Normal Inspection Course - Vital Signs Last Recorded V/S: Last Vital Signs Temp 97.8 F 09/19/21 10:15 Pulse 104 H 09/19/21 10:15 Resp 20 09/19/21 10:15 BP 152/114 H 09/19/21 10:15 Pulse Ox 94 L 09/19/21 10:15 - Re-Assessments/Exams Free Text/Narrative Re-Assessment/Exam: 09/19/21 10:38 I will get her on pen VK and some hydrocodone. Departure - Departure Time of Disposition: 10:40 Disposition: Home, Self-Care 01 Condition: Good Clinical Impression: Pain, dental, Dental abscess - Discharge Information *PRESCRIPTION DRUG MONITORING PROGRAM REVIEWED*: No *COPY OF PRESCRIPTION DRUG MONITORING REPORT IN PATIENT TREY: No Prescriptions: Hydrocodone/Acetaminophen [Hydrocodone-Acetamin 5-325 mg] 1 - 2 each PO Q6H PRN #30 tablet PRN Reason: Pain Penicillin V Potassium 500 mg PO Q6HR #40 tab Referrals: Cathy Saavedra MD [Primary Care Provider] - Additional Instructions: Take the penicillin VK 4 times per day for 10 days. Drink plenty of fluids. Take tylenol or motrin for pain. If that does not work, try the hydrocodone. Please return if you are worse. Sepsis Event Note (ED) - Evaluation Sepsis Screening Result: No Definite Risk - Focused Exam Vital Signs: Vital Signs Temp Pulse Resp BP Pulse Ox 09/19/21 10:15 97.8 F 104 H 20 152/114 H 94 L
== END 2021-09-19 11:00 | disposition home or self-care (01) ==
LOC: JD.ED 09:59
DX: K04.7 Periapical abscess without sinus (principal); E78.00 Pure hypercholesterolemia, unspecified; E66.9 Obesity, unspecified; Z68.36 Body mass index [BMI] 36.0-36.9, adult; Z88.5 Allergy status to narcotic agent; Z79.899 Other long term (current) drug therapy; Z72.0 Tobacco use
CPT/HCPCS: 99282

== ENCOUNTER 2021-12-25 15:57 | Emergency (ER) | payer MEDICAID ==
[2021-12-25 16:09] VITALS: BP 157/100; PULSE 119
[2021-12-25] MEDS ORDERED: Promethazine 25 MG/ML SDV IM ONE (16:22)
[2021-12-25] MEDS ORDERED: HYDROmorphone 1 MG/ML Syringe IM ONE (16:22)
== END 2021-12-25 17:20 | disposition home or self-care (01) ==
LOC: JD.ED 15:57
DX: M47.816 Spondylosis without myelopathy or radiculopathy, lumbar region (principal); Z88.5 Allergy status to narcotic agent; Z88.2 Allergy status to sulfonamides; Z72.0 Tobacco use
CPT/HCPCS: 96372; 99283; J1170; J2550; 99284

== ENCOUNTER 2022-01-07 11:44 | Emergency (ER) | payer MEDICAID ==
[2022-01-07 12:43] VITALS: BP 172/107; PULSE 101
[2022-01-07] MEDS ORDERED: HYDROmorphone 1 MG/ML Syringe IM ONE (13:07)
[2022-01-07] MEDS ORDERED: Orphenadrine 100 MG Tab.ER PO ONE (13:07)
== END 2022-01-07 14:21 | disposition home or self-care (01) ==
LOC: JD.ED 11:44
DX: M54.41 Lumbago with sciatica, right side (principal); E78.00 Pure hypercholesterolemia, unspecified; E66.9 Obesity, unspecified; Z68.35 Body mass index [BMI] 35.0-35.9, adult; Z88.5 Allergy status to narcotic agent; Z79.899 Other long term (current) drug therapy; Z72.0 Tobacco use
CPT/HCPCS: 96372; 99283; A9270; J1170; 99284

== ENCOUNTER 2022-02-07 12:38 | Emergency (ER) | payer MEDICAID ==
[2022-02-07 13:13] VITALS: BP 179/111; PULSE 94
[2022-02-07] MEDS ORDERED: Ketorolac 30 MG/ML SDV IM ONE (13:26)
[2022-02-07] MEDS ORDERED: Morphine 4 MG/ML Syringe IM ONE (14:30)
== END 2022-02-07 14:54 | disposition home or self-care (01) ==
LOC: JD.ED 12:38
DX: M54.42 Lumbago with sciatica, left side (principal); E78.00 Pure hypercholesterolemia, unspecified; E66.9 Obesity, unspecified; Z68.34 Body mass index [BMI] 34.0-34.9, adult; Z79.899 Other long term (current) drug therapy; Z88.5 Allergy status to narcotic agent; Z72.0 Tobacco use
CPT/HCPCS: 96372; 99283; J1885; J2270; 99284

== ENCOUNTER 2022-06-06 14:30 | Emergency (ER) | payer MEDICAID ==
[2022-06-06 14:39] VITALS: BP 162/102; PULSE 94
[2022-06-06] MEDS ORDERED: Metoclopramide 10 MG/2 ML SDV IVPUSH ONE (14:56)
[2022-06-06] MEDS ORDERED: diphenhydrAMINE 50 MG/ML SDV IVPUSH ONE (14:57)
[2022-06-06] MEDS ORDERED: HYDROmorphone 0.5 MG/0.5 ML Syringe IVPUSH ONE ×2 (14:57→17:07)
[2022-06-06] MEDS ORDERED: Dextrose 5%-Lactated Ringers 1,000 ML IV SCH (15:00)
[2022-06-06 16:13] LABS: ESTIMATED GFR 91 mL/min (>60)
[2022-06-06] MEDS ORDERED: Ondansetron 4 MG/2 ML SDV IVPUSH ONE (17:07)
[2022-06-06] MEDS ORDERED: Iopamidol 612 MG/ML 100 ML Bottle IVPUSH ONE (17:37)
[2022-06-06] MEDS ORDERED: Sodium Chloride 0.9% 10 ML Syringe FLUSH PRN (17:37)
[2022-06-06] MEDS ORDERED: Sodium Chloride 0.9% 1,000 ML IV SCH (18:30)
[2022-06-06] MEDS: Potassium Chloride 10 MEQ in Premix Bag 1 BAG IV SCH ×2 (18:53→20:05)
[2022-06-06] MEDS ORDERED: Ketorolac 30 MG/ML SDV IVPUSH ONE (20:12)
== END 2022-06-06 21:32 | disposition home or self-care (01) ==
LOC: JD.ED 14:30
DX: K52.1 Toxic gastroenteritis and colitis (principal); E87.6 Hypokalemia; I10 Essential (primary) hypertension; E66.9 Obesity, unspecified; Z68.30 Body mass index [BMI] 30.0-30.9, adult; Z79.899 Other long term (current) drug therapy; Z88.5 Allergy status to narcotic agent; Z90.49 Acquired absence of other specified parts of digestive tract
CPT/HCPCS: 36415; 71045; 74018; 74177; 80053; 81001; 82009; 83605; 83630; 83690; 83735; 84443; 85025; 85610; 85730; 86140; 87045; 87046; 87493; 87899; 96361; 96365; 96366; 96375; 96376; 99284; J1170; J1200; J1885; J2405; J2765; J3480; J3490; J7030; J7121; Q9967

== ENCOUNTER 2025-06-18 11:45 | Emergency (ER) | payer MEDICAID ==
[2025-06-18] MEDS: Sodium Chloride 0.9% 10 ML Syringe FLUSH PRN (12:22)
[2025-06-18 12:47] LABS: BASOPHILS ABSOLUTE AUTO 0.1 K/mm3 (0.0-0.2); BASOPHILS PERCENT AUTO 0.4 % (0.0-1.0); EOSINOPHILS ABSOLUTE AUTO 0.2 K/mm3 (0.0-0.4); EOSINOPHILS PERCENT AUTO 1.5 % (0.0-6.0); IMMATURE GRAN ABSOLUTE AUTO 0.03 K/mm3 (0.00-0.05); IMMATURE GRAN PERCENT AUTO 0.2 % (0.0-0.4); LYMPHOCYTES ABSOLUTE AUTO 1.8 K/mm3 (1.0-4.8); LYMPHOCYTES PERCENT AUTO 15.1 % (24.0-44.0); MEAN PLATELET VOLUME 9.9 fl (9.4-12.3); MONOCYTES ABSOLUTE AUTO 0.7 K/mm3 (0.0-0.8); MONOCYTES PERCENT AUTO 5.3 % (0.0-8.0); NEUTROPHILS ABSOLUTE AUTO 9.4 K/mm3 (1.8-7.7); NEUTROPHILS PERCENT AUTO 77.5 % (41.0-71.0); NRBC ABSOLUTE 0.00 (0.00-0.02); NRBC PERCENT 0.0 % (0.0-0.2); PLATELET COUNT,PLT 287 K/mm3 (150-400); RED BLOOD CELL COUNT 4.95 M/mm3 (4.10-5.30); WHITE BLOOD CELL COUNT,WBC 12.18 K/mm3 (3.9-11.3)
[2025-06-18 13:01] LABS: A/G RATIO 1.2 (1-2); ALANINE AMINOTRANSFERASE,ALT 22.0 U/L (14-59); ASPARTATE AMNIOTRANSFERASE,AST 36.0 U/L (15-37); BILIRUBIN TOTAL 0.8 mg/dL (0.2-1.0); BLOOD UREA NITROGEN,BUN 19.0 mg/dL (7-18); CARBON DIOXIDE,CO2 25.0 mEq/L (21-32); CHLORIDE,CL 99.0 mEq/L (98-107); CREATININE 0.6 mg/dL (0.55-1.02); EST CRCL DRUG DOSING (CG) 91.76 mL/min; ESTIMATED GFR 109.0 mL/min (>60); GLUCOSE RANDOM 114.0 mg/dL (70-99); POTASSIUM,K 2.9 mEq/L (3.5-5.1); PROTEIN TOTAL,TP 7.0 g/dl (6.4-8.2); SODIUM,NA 136.0 mEq/L (136-145)
[2025-06-18] MEDS: Ondansetron 4 MG/2 ML SDV IVPUSH ONE (13:12)
[2025-06-18] MEDS: Potassium Chloride 20 MEQ Tab.ER PO ONE (14:41)
[2025-06-18] MEDS: Alum Hydrox/Mag Hydrox/Simeth 30 ML, Lidocaine 2% 15 ML PO ONE (14:42)
[2025-06-18 19:22] VITALS: BP 118/74; PULSE 84
== END 2025-06-18 14:40 | disposition home or self-care (01) ==
LOC: JD.ED 11:45
DX: R11.2 Nausea with vomiting, unspecified (principal); I10 Essential (primary) hypertension; E78.00 Pure hypercholesterolemia, unspecified; E66.9 Obesity, unspecified; F17.200 Nicotine dependence, unspecified, uncomplicated; Z88.5 Allergy status to narcotic agent; Z79.899 Other long term (current) drug therapy; Z90.49 Acquired absence of other specified parts of digestive tract; Z68.26 Body mass index [BMI] 26.0-26.9, adult
CPT/HCPCS: 36415; 80053; 83690; 85025; 86140; 96361; 96374; 96375; 99284; A9270; J1308; J2405; J2765; J3490; J7030